=== PATIENT | female | born 1935 | race Caucasian/White ===

== ENCOUNTER 2017-04-02 13:30 | Inpatient (IN) | payer MEDICARE, BC ==
[~2017-04-02] VITALS: Ht 170.2 cm; Wt 87.3 kg
[2017-04-02] MEDS ORDERED: IV NORMAL SALINE 1,000ML 1,000 ML IV SCH (14:14)
[2017-04-02 14:25] LABS: BASO % 1 % (0-3); EOS % 1 % (0-3); HEMATOCRIT 32.7 % (36.0-47.0); LYMPH # 0.6 x10^3/uL (1.0-4.8); LYMPH % 11 % (24-48); MEAN CORPUSCULAR HEMOGLOBIN 36 pg (25-35); MEAN CORPUSCULAR HGB CONC 34 g/dL (31-37); MEAN CORPUSCULAR VOLUME 106 fL (79-100); MONO # 0.4 x10^3/uL (0.0-1.1); MONO % 7 % (0-9); NEUT # 4.6 x10^3uL (1.8-7.7); NEUT % 81 % (31-73); PLATELET COUNT 212 x10^3/uL (140-400); RED BLOOD COUNT 3.09 x10^6/uL (3.50-5.40); RED CELL DISTRIBUTION WIDTH 14.2 % (11.5-14.5); WHITE BLOOD COUNT 5.7 x10^3/uL (4.0-11.0)
[2017-04-02 14:30] LABS: ALBUMIN 3.6 g/dL (3.4-5.0); ALBUMIN/GLOBULIN RATIO 1.3 (1.0-1.7); CALCIUM 8.7 mg/dL (8.5-10.1); CREATININE 1.2 mg/dL (0.6-1.0); GFR 43.3; MAGNESIUM 2.1 mg/dL (1.8-2.4); POTASSIUM 3.8 mmol/L (3.5-5.1); TOTAL BILIRUBIN 0.5 mg/dL (0.2-1.0); TOTAL PROTEIN 6.3 g/dL (6.4-8.2)
--- NOTE | 2017-04-02 14:38 | RAD ---
EXAM: CHEST 1 VIEW History: Weakness, headache COMPARISON: None available. TECHNIQUE: Single portable radiograph of the chest FINDINGS: The cardiac silhouette is unremarkable. The lungs are clear bilaterally. The costophrenic sulci are clear and well demarcated. IMPRESSION: No radiographic evidence of an acute cardiopulmonary process.
--- NOTE | 2017-04-02 14:48 | PHYS DOC ---
Past History Past Medical History: Other Past Surgical History: Hysterectomy Alcohol Use: None Drug Use: None Adult General Chief Complaint Chief Complaint: DIZZY/LIGHT HEADED HPI HPI Patient is a 81 year old female who presents with complaint of dizziness. Patient states that she started having symptoms this morning. Patient states that when she attempted to get up and walk she started having "dizziness." The patient is having a difficult time explaining whether she is having a moving sensation versus lightheadedness. Patient does state that she felt like she was going to pass out with her symptoms. Patient states that they improve when she is at rest and is lying back. Patient denies any associated fever, chest pain, or associated unilateral weakness. Patient follows a Dr. Del Rosario for primary care. Patient has history of leukemia which is currently in remission. Patient states that she is on daily therapy for suppression and states that she follows at [facility] for her cancer care. Patient denies any abdominal pain , nausea, vomiting, or diarrhea. Patient does note that she has had decreased appetite over the past several days. Review of Systems Review of Systems Constitutional: Generalized fatigue, denies fever or chills[] Eyes: Denies change in visual acuity, redness, or eye pain [] HENT: Denies nasal congestion or sore throat [] Respiratory: Denies cough or shortness of breath [] Cardiovascular: Denies chest pain or edema[] GI: Anorexia, denies abdominal pain, nausea, vomiting, bloody stools or diarrhea [] : Denies dysuria or hematuria [] Musculoskeletal: Denies back pain or joint pain [] Integument: Denies rash or skin lesions [] Neurologic: Dizziness, denies headache, focal weakness or sensory changes [] Current Medications Current Medications Current Medications Medications (Trade) Dose Ordered Sig/[facility] Start Time Stop Time Status Last Admin Dose Admin Sodium Chloride 1,000 ml @ 1,000 mls/hr Q1H 04/02/17 14:14 04/02/17 15:13 UNV Physical Exam Physical Exam Constitutional: Alert, afebrile, appears fatigued. [] HENT: Normocephalic, atraumatic, bilateral external ears normal, oropharynx moist, no oral exudates, nose normal. [] Eyes: PERRLA, EOMI, conjunctiva normal, no discharge. [] Neck: Normal range of motion, no tenderness, supple, no stridor. [] Cardiovascular:Heart rate regular rhythm, no murmur [] Lungs & Thorax: Bilateral breath sounds clear to auscultation [] Abdomen: Bowel sounds normal, soft, no tenderness, no masses, no pulsatile masses. [] Skin: Warm, dry, no erythema, no rash. [] Back: No tenderness, no CVA tenderness. [] Extremities: No tenderness, no cyanosis, no clubbing, ROM intact, no edema. [] Neurologic: Alert and oriented X 3, normal motor function, normal sensory function, no focal deficits noted. [] Current Patient Data Vital Signs Vital Signs Date Time Temp Pulse Resp B/P (MAP) Pulse Ox O2 Delivery O2 Flow Rate FiO2 04/02/17 13:35 97.8 71 16 99 Room Air Lab Results Laboratory Tests Test 04/02/17 13:51 White Blood Count 5.7 x10^3/uL (4.0-11.0) Red Blood Count 3.09 x10^6/uL (3.50-5.40) L Hemoglobin 11.0 g/dL (12.0-15.5) L Hematocrit 32.7 % (36.0-47.0) L Mean Corpuscular Volume 106 fL (79-100) H Mean Corpuscular Hemoglobin 36 pg (25-35) H Mean Corpuscular Hemoglobin Concent 34 g/dL (31-37) Red Cell Distribution Width 14.2 % (11.5-14.5) Platelet Count 212 x10^3/uL (140-400) Neutrophils (%) (Auto) 81 % (31-73) H Lymphocytes (%) (Auto) 11 % (24-48) L Monocytes (%) (Auto) 7 % (0-9) Eosinophils (%) (Auto) 1 % (0-3) Basophils (%) (Auto) 1 % (0-3) Neutrophils # (Auto) 4.6 x10^3uL (1.8-7.7) Lymphocytes # (Auto) 0.6 x10^3/uL (1.0-4.8) L Monocytes # (Auto) 0.4 x10^3/uL (0.0-1.1) Eosinophils # (Auto) 0.0 x10^3/uL (0.0-0.7) Basophils # (Auto) 0.0 x10^3/uL (0.0-0.2) Sodium Level 144 mmol/L (136-145) Potassium Level 3.8 mmol/L (3.5-5.1) Chloride Level 109 mmol/L (98-107) H Carbon Dioxide Level 26 mmol/L (21-32) Anion Gap 9 (6-14) Blood Urea Nitrogen 18 mg/dL (7-20) Creatinine 1.2 mg/dL (0.6-1.0) H Estimated GFR (Cockcroft-Gault) 43.3 BUN/Creatinine Ratio 15 (6-20) Glucose Level 149 mg/dL (70-99) H Calcium Level 8.7 mg/dL (8.5-10.1) Magnesium Level 2.1 mg/dL (1.8-2.4) Total Bilirubin 0.5 mg/dL (0.2-1.0) Aspartate Amino Transferase (AST) 15 U/L (15-37) Alanine Aminotransferase (ALT) 16 U/L (14-59) Alkaline Phosphatase 69 U/L (46-116) Total Protein 6.3 g/dL (6.4-8.2) L Albumin 3.6 g/dL (3.4-5.0) Albumin/Globulin Ratio 1.3 (1.0-1.7) EKG EKG Interpreted by me: Heart rate 69, sinus rhythm, leftward axis, no acute ST/T- wave abnormalities present[] Radiology/Procedures Radiology/Procedures [address] [address] IMAGING REPORT Signed PATIENT: SUZANNE CR ACCOUNT: [id number] : 1935 LOCATION: ER AGE: 81 SEX: F EXAM STATUS: REG ER ORD. PHYSICIAN: CECILIO GARCIA MD REASON: near syncope PROCEDURE: PORTABLE CHEST 1V EXAM: CHEST 1 VIEW History: Weakness, headache COMPARISON: None available. TECHNIQUE: Single portable radiograph of the chest FINDINGS: The cardiac silhouette is unremarkable. The lungs are clear bilaterally. The costophrenic sulci are clear and well demarcated. IMPRESSION: No radiographic evidence of an acute cardiopulmonary process. DICTATED AND SIGNED BY: JOSIANE SPRAGUE MD DATE: 04/02/171433 CC: CECILIO GARCIA MD; MERRY DEL ROSARIO MD ~ [address] [address] IMAGING REPORT Signed PATIENT: SUZANNE CR ACCOUNT: [id number] : 1935 LOCATION: ER AGE: 81 SEX: F EXAM STATUS: REG ER ORD. PHYSICIAN: CECILIO GARCIA MD REASON: dizziness PROCEDURE: CT HEAD WO CONTRAST CT head without contrast History: Headache, dizziness. Comparison: None. Procedure: Axial images are obtained of the head from the skull base through the vertex without IV contrast. Findings: The ventricles and sulci are normal for the patient's age. No mass-effect, intracranial mass, midline shift, hemorrhage or obvious acute infarction is identified. Basilar cisterns are patent. Bone windows demonstrate no significant calvarial abnormality. The visualized paranasal sinuses appear clear. Impression: 1. No acute intracranial process. PQRS Compliance Statement: One or more of the following individualized dose reduction techniques were utilized for this examination: 1. Automated exposure control 2. Adjustment of the mA and/or kV according to patient size 3. Use of iterative reconstruction technique DICTATED AND SIGNED BY: JOSIANE SPRAGUE MD DATE: 04/02/171657 CC: CECILIO GARCIA MD; MERRY DEL ROSARIO MD ~ [] Course & Med Decision Making Course & Med Decision Making Pertinent Labs and Imaging studies reviewed. (See chart for details) Patient started on IV fluids and meclizine in the emergency department. On reevaluation, patient continues to have positional dizziness. Patient's initial workup shows no clear etiology of patient's symptoms at this time. The patient shows no other symptoms that would be consistent with posterior stroke at this time. Due to inability to ambulate independently, the patient will be admitted the hospital for further treatment. I spoke with Dr. Auguste accepted care patient in hospital. Dragon Disclaimer Dragon Disclaimer This chart was dictated in whole or in part using Voice Recognition software in a busy, high-work load, and often noisy Emergency Department environment. It may contain unintended and wholly unrecognized errors or omissions. Departure Departure: Impression: Primary Impression: Dizziness Disposition: 09 ADMITTED INPATIENT Admitting Physician: Carmita Auguste Condition: STABLE Referrals: MERRY DEL ROSARIO MD (PCP) CECILIO GARCIA MD Apr 02, 2017 14:47
[2017-04-02] MEDS ORDERED: MECLIZINE 12.5 MG TABLET. PO STA (15:42)
[2017-04-02 16:32] LABS: BILIRUBIN,URINE NEG (NEG); CLARITY,URINE HAZY; COLOR,URINE YELLOW; GLUCOSE,URINE NEG (NEG); NITRITE,URINE NEG (NEG); UROBILINOGEN,URINE 0.2 mg/dL (0.2 mg/dL)
[2017-04-02 16:33] LABS: BACTERIA,URINE 0 /HPF (0-FEW); RBC,URINE 20-40 /HPF (0-2); SQUAMOUS EPITHELIAL CELL,UR MOD /LPF; WBC,URINE OCC /HPF (0-4)
--- NOTE | 2017-04-02 17:03 | RAD ---
CT head without contrast History: Headache, dizziness. Comparison: None. Procedure: Axial images are obtained of the head from the skull base through the vertex without IV contrast. Findings: The ventricles and sulci are normal for the patient's age. No mass-effect, intracranial mass, midline shift, hemorrhage or obvious acute infarction is identified. Basilar cisterns are patent. Bone windows demonstrate no significant calvarial abnormality. The visualized paranasal sinuses appear clear. Impression: 1. No acute intracranial process. PQRS Compliance Statement: One or more of the following individualized dose reduction techniques were utilized for this examination: 1. Automated exposure control 2. Adjustment of the mA and/or kV according to patient size 3. Use of iterative reconstruction technique
[2017-04-02] MEDS ORDERED: ACETAMINOPHEN 325 MG TABLET PO PRN (17:30)
[2017-04-02] MEDS ORDERED: ONDANSETRON PF 4 MG/2 ML VIAL. IV PRN (17:30)
[2017-04-02] MEDS ORDERED: MECLIZINE 12.5 MG TABLET. PO PRN (17:30)
[2017-04-02 18:12] VITALS: BP 155/89
[2017-04-02] MEDS ORDERED: ESOM40CA PO (19:08)
[2017-04-02] MEDS ORDERED: IMAT100T PO (19:08)
--- NOTE | 2017-04-02 19:17 | EKG ---
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
[2017-04-02] MEDS: IV NORMAL SALINE 1,000ML 1,000 ML IV SCH (19:18)
[2017-04-02] MEDS ORDERED: POTA20TA4 PO (21:42)
[2017-04-02] MEDS ORDERED: PROP60CA PO (21:42)
[2017-04-02 22:28] VITALS: BP 140/66
[2017-04-03] MEDS: IV NORMAL SALINE 1,000ML 1,000 ML IV SCH ×2 (03:20→07:41)
[2017-04-03 05:02] VITALS: BP 141/62
[2017-04-03 06:24] LABS: CALCIUM 8.3 mg/dL (8.5-10.1); CREATININE 1.1 mg/dL (0.6-1.0); GFR 47.9; POTASSIUM 3.2 mmol/L (3.5-5.1)
[2017-04-03 06:25] LABS: BASO % 1 % (0-3); EOS # 0.1 x10^3/uL (0.0-0.7); EOS % 1 % (0-3); HEMATOCRIT 30.1 % (36.0-47.0); HEMOGLOBIN 10.2 g/dL (12.0-15.5); LYMPH # 1.4 x10^3/uL (1.0-4.8); LYMPH % 24 % (24-48); MEAN CORPUSCULAR HEMOGLOBIN 36 pg (25-35); MEAN CORPUSCULAR HGB CONC 34 g/dL (31-37); MEAN CORPUSCULAR VOLUME 106 fL (79-100); MONO # 0.7 x10^3/uL (0.0-1.1); MONO % 11 % (0-9); NEUT # 3.9 x10^3uL (1.8-7.7); NEUT % 64 % (31-73); PLATELET COUNT 197 x10^3/uL (140-400); RED BLOOD COUNT 2.85 x10^6/uL (3.50-5.40); RED CELL DISTRIBUTION WIDTH 14.1 % (11.5-14.5); WHITE BLOOD COUNT 6.1 x10^3/uL (4.0-11.0)
[2017-04-03] MEDS: PANTOPRAZOLE 40 MG TABLET. PO SCH (07:40)
[2017-04-03] MEDS: POTASSIUM CHLORIDE 20 MEQ TABLET.ER. PO SCH (09:12)
[2017-04-03] MEDS: PROPRANOLOL ER 60 MG CAP.SA.24H. PO SCH (09:12)
[2017-04-03 10:30] VITALS: BP 156/81
[2017-04-03] MEDS: IMATINIB MESYLATE 100 MG PO SCH (10:40)
[2017-04-03 15:08] VITALS: BP 114/78
--- NOTE | 2017-04-03 16:34 | RAD ---
EXAM: Carotid Doppler sonogram. HISTORY: Dizziness, weakness. TECHNIQUE: Solares scale and color Doppler sonographic evaluation of the neck with spectral waveform analysis was performed and static images are submitted for review. FINDINGS: RIGHT: The peak systolic velocity within the common carotid artery is 42 cm/sec. The peak systolic velocity within the internal carotid artery is 36 cm/sec and the end diastolic velocity within the internal carotid artery is 16 cm/sec. The ICA/CCA ratio is 1.2. Grayscale images demonstrate no significant plaquing. LEFT: The peak systolic velocity within the common carotid artery is 32 cm/sec. The peak systolic velocity within the internal carotid artery is 47 cm/sec and the end diastolic velocity within the internal carotid artery is 70 cm/sec. The ICA/CCA ratio is 1.5. Grayscale images demonstrate no significant plaquing. There is antegrade flow within both vertebral arteries. IMPRESSION: 1. No evidence of hemodynamically significant stenosis. PQRS Compliance Statement - Stenosis calculations for CT, MR and conventional angiography are based upon measurement of the distal ICA diameter in accordance with the NASCET methodology. Stenosis calculations for carotid ultrasound studies are derived from validated velocity criteria which are known to correlate with the NASCET methodology.
[2017-04-03] MEDS ORDERED: POTASSIUM CHLORIDE 20 MEQ TABLET.ER. PO ONE (16:45)
--- NOTE | 2017-04-03 17:14 | RAD ---
CT study of the lumbar spine without contrast Indications: Weakness. Low back pain. Technique: Noncontrast helical CT scanning of the lumbar spine was performed. Multiplanar 2-D reconstructions were generated. PQRS Compliance Statement: One or more of the following individualized dose reduction techniques were utilized for this examination: 1. Automated exposure control 2. Adjustment of the mA and/or kV according to patient size 3. Use of iterative reconstruction technique Comparison: CT study of the abdomen and pelvis dated July 07, 2014. Findings: No compression fracture or discitis or osteolytic process or anterolisthesis or spondylolysis is evident. The transverse processes are intact. At T12-L1, mild spinal canal stenosis is seen. L1-2, mild spinal canal stenosis is seen. At L2-3, mild diffuse disc protrusion is seen. Mild spinal canal stenosis is seen. At L3-4, mild diffuse disc protrusion is seen. Mild to moderate spinal canal stenosis is seen. At L4-5, mild diffuse disc protrusion is seen. Degenerative facet arthropathy and ligamentum flavum hypertrophy is seen. These findings combine to form a moderate spinal canal stenosis. There is mild narrowing of the neural foramina bilaterally. At L5-S1, prominent degenerative endplate spurring and associated moderate diffuse disc protrusion is seen. Moderate facet arthropathy and ligamentum flavum hypertrophy is seen. These findings combine to form a moderate spinal canal stenosis. There is moderate narrowing of the neural foramina bilaterally. Mild retrolisthesis is seen at this level as well. IMPRESSION: No acute compression fracture. Degenerative lumbar spondylosis. Multilevel spinal canal stenosis and neural foraminal narrowing as discussed above. See discussion above for each level. Incidental note is made of moderate hiatal hernia and staghorn calculus of the left kidney and central renal pelvis stone of the right kidney.
--- NOTE | 2017-04-03 18:20 | HP ---
ADMIT DATE: 04/02/2017 HISTORY OF PRESENT ILLNESS: The patient is a 81-year-old female patient who came to the Emergency Room complaining of dizziness. She started having symptoms this morning. Whenever she attempts to get up and walk, she started having dizziness. The patient is having a difficult time explaining whether she is having moving sensation versus lightheadedness. She did state that she felt like she was going to pass out with her symptoms. She did not describe anything spinning around. Denied any tinnitus. Did complain of nausea, but no vomiting. She stated that her feet become wobbly and she feels as if she is going to fall, but she uses the furniture and with the help of her , she manages to get to where she wants to get. She did complain that whenever she turns her head in certain position that her symptoms get worse. She has never experienced similar symptoms before. 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 She is on Gleevec daily. She has also Licea's esophagus, hyperlipidemia, and seasonal allergies. PAST SURGICAL HISTORY: Significant for bilateral cataract extraction, total abdominal hysterectomy and bilateral salpingo-oophorectomy, appendectomy, EGD, and colonoscopy. ALLERGIES: She is allergic to AMPICILLIN and CRESTOR. MEDICATIONS: She is currently on Nexium capsule 40 mg once a day, Gleevec 200 mg once a day, potassium chloride 20 mEq once a day, propranolol 60 mg daily. FAMILY HISTORY: She has had 1 brother who of Parkinson's disease at the age of 76. Her baby brother at 7 months of age. Her father of bladder cancer and mother of congestive heart failure. SOCIAL HISTORY: She is and lives with her . She has 2 daughters. Never smoked, does not drink alcohol and not using any drugs. 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 REVIEW OF SYSTEMS: The patient denied any blurring of vision. Did have cataracts and she has the beginning of senile macular degeneration. Denied any glaucoma. She denied any tinnitus, earache, or sensorineural deafness. Did complain of stuffy nose and seasonal allergies. Denied any sore throat, sore tongue, toothache, hoarseness of voice, or difficulty swallowing. She did intentionally lose about 28 pounds. Did complain of nausea, but no vomiting. Denied any hematemesis, melena, or hematochezia. Denied any dysuria, frequency, or hematuria. Denied any chest pain, shortness of breath, orthopnea, or paroxysmal nocturnal dyspnea. Denied any cough, phlegm, or hemoptysis, but did complain of dizziness and lightheadedness. PHYSICAL EXAMINATION: GENERAL: On arrival to the Emergency Room, she looks well and was clearly in no apparent respiratory distress, slightly pale, but no jaundice, cyanosis, or thyromegaly. No jugular venous distention. No limb edema. VITAL SIGNS: Her heart rate was 71, blood pressure was 155/89, temperature was 97.6, respiratory rate was 16 and oxygen saturation was 99% on room air. HEAD, EYES, EARS, NOSE AND THROAT: Normocephalic, atraumatic. NECK: Supple. HEART: Showed normal first and second heart sounds with no gallop, rub, or murmur. CHEST: Clear to auscultation. No crepitation or rhonchi. ABDOMEN: Distended, soft, nontender. No guarding or rigidity. No organomegaly. All hernial orifices intact. Bowel sounds normal. NEUROLOGIC: She was awake, alert, responding appropriately. Cranial nerves intact. EXTREMITIES: She moves extremities without difficulty. She normally is able to ambulate without assistance or assistive devices, but has been unable to ambulate and whenever she stands or turned her head, she had this feeling of dizziness. LABORATORY DATA: While in the Emergency Room, she has had lab work done, which showed a white cell count of 5700, hemoglobin 11, hematocrit 33, MCV 106, platelet count of 212,000. Her chemistry showed serum sodium of 144, potassium 3.8, chloride 109, bicarbonate was 26, anion gap of 9, BUN 18, creatinine 1.2, estimated GFR was 43 mL per minute. Her glucose was 149, calcium was 8.7, magnesium 2.1. Total bilirubin, AST, ALT, alkaline phosphatase were normal. Total protein was 6.3, albumin 3.6. Urinalysis showed the urine was yellow, hazy with a pH of 7, specific gravity of 10.15. Urine was negative for glucose, ketones, blood, nitrites. There was moderate amount of blood, negative for nitrite and negative for leukocyte esterase. There were 20-40 rbc's, no bacteria. We did arrange for her to have a CT scan. Her chest x-ray showed no radiographic evidence of acute cardiopulmonary process. Her CT scan of the head showed the ventricles and sulci are normal for the patient's age. No mass effect, intracranial mass, midline shift, hemorrhage, or obvious acute infarction is identified. Basilar cisterns are patent. Bone windows demonstrate no significant calvarial abnormality. The visualized paranasal sinuses appear clear. We did arrange for her to have a lumbar spine CT and carotid Doppler study. We did consult the neurologist as she probably had some form of acute labyrinthitis versus positional paroxysmal benign vertigo. I will continue all her medication and consult the PT, OT. Await Dr. Reyna's evaluation tomorrow and decide on further management accordingly. KRISTEN YUN MD DR: MIGUEL/torsten JOB#: [id number] / [id number]
[2017-04-03 19:43] VITALS: BP 101/53
--- NOTE | 2017-04-03 23:41 | CONS ---
DATE OF CONSULTATION: 04/03/2017 NEUROLOGICAL CONSULTATION REFERRING PHYSICIAN: Carmita Auguste DO. CHIEF COMPLAINTS: Dizziness, lower back pain and generalized weakness. HISTORY OF PRESENT ILLNESS: This is a 81-year-old female who was admitted to Emergency Room yesterday on account of a new onset of dizziness described as "lightheadedness." The symptoms started 2 days ago and more apparent when she changes her body positions or turning her head quickly to any directions. She described her dizziness as "lightheadedness" and unsteadiness. She has had longstanding history of localized lower back pain and she related that to degenerative disk disease. She has been complaining of generalized weakness, more prominent on the lower extremities. She has been receiving physical therapy at [facility] here in town. She denies bowel or bladder dysfunctions. She also complains of intermittent stiffness of the lower extremities and mild tremor of the right hand, more prominent when she uses her right hand or holding objects. She denies any recent falls, headaches, visual disturbances, numbness or paresthesia, bowel or bladder dysfunctions. Initial non-enhanced head CT scan revealed no evidence of acute intracranial process. PAST MEDICAL HISTORY: Leukemia, which it is in remission, chronic lower back pain as described above. SOCIAL HISTORY: The patient is . She denies smoking, alcohol drinking, or illicit drug use. She uses a walker for ambulation. FAMILY HISTORY: Positive for cancer, Parkinson's disease and congestive heart failure. CURRENT HOME MEDICATIONS: Tylenol, pantoprazole, potassium and propranolol. ALLERGIES: AMPICILLIN AND ROSUVASTATIN. REVIEW OF SYSTEMS: A 10-point review of system was performed and consistent with generalized weakness, chronic lower back pain and dizziness. PHYSICAL EXAMINATION: GENERAL: Well-developed, well-nourished, white female, not in acute distress. She weighs 187.3 pounds. VITAL SIGNS: Blood pressure is 141/62, respiratory rate 20, pulse is 60 and regular, temperature 98.4, oxygen saturation is 96% on room air. HEENT: Normocephalic, atraumatic, otherwise unremarkable. NECK: Supple. Negative for carotid bruit, lymphadenopathy or thyromegaly. LUNGS: Clear to A and P. CARDIOVASCULAR: Regular rate and rhythm, normal S1, S2. There is no S3, S4 or murmur. ABDOMEN: Soft. Bowel sounds positive. EXTREMITIES: Negative for cyanosis, clubbing or pitting edema. NEUROLOGIC: Mental Status: The patient is alert and oriented x 3. Speech is fluent. There is no language dysfunction. Memory, judgment, and abstract thinking are normal. The patient denies hallucination or delusion. CRANIAL NERVES: Visual mascorro are full. The pupils are reactive to light and accommodation. Extraocular movements are intact. There is no nystagmus. There is no facial motor or sensory deficit. Hearing is intact bilaterally. The palate is elevated symmetrically. Sternocleidomastoid muscles are powerful bilaterally. The patient shrugs her shoulders symmetrically, protrudes her tongue in the midline without fasciculation or atrophy. MOTOR: No focal muscle bulk was seen. The tone is normal. The strength is 5/5 in the upper extremities and 4/5 in the distal lower extremity and -4/5 in the proximal lower extremities. Sensory: Revealed normal pinprick, light touch, vibratory and position senses. Deep tendon reflexes were symmetric and hypoactive with absent Achilles responses. Gait not tested. DIAGNOSTIC DATA: Initial nonenhanced head CT scan revealed no evidence of acute intracranial process. Chest x-ray revealed no evidence of acute cardiopulmonary process. LABORATORY DATA: CBC revealed white blood cells of 6.1 thousand, hemoglobin 10.2, hematocrit 30.1, platelet count 197,000. Chemistry revealed sodium of 147, potassium 3.2, chloride 112, CO2 of 27, BUN 13, creatinine 1.1, glucose is 80 and calcium 8.3. Urinalysis,. microscopic hematuria. IMPRESSION: 1. New onset of dizziness aggravated by turning the head quickly to any directions or by changing her body positions likely represents benign positional vertigo versus vestibulopathy. 2. Chronic localized lower back pain, likely secondary to degenerative disk disease causing weakness of the lower extremities, more proximally. 3. Intermittent mild postural tremor, probably represents a senile tremor. 4. Multiple metabolic derangements including hypokalemia, hypocalcemia, hypernatremia, probably secondary to dehydration. 5. Leukemia in remission. RECOMMENDATIONS: 1. Carotid Doppler study. 2. CT scan of the lumbosacral spine. 3. Vestibular exercise and physical therapy. 4. Hydration. 5. Correct the underlying metabolic derangement with potassium and calcium supplements and careful hydrations. 4. Increase the activity as tolerated. 5. In case of radicular lower back pain, we will arrange for EMG/NCS of the lower extremity to rule out radiculopathy versus entrapment neuropathy in the lower extremity. M Misael DRAKE MD DR: HEIKE/torsten JOB#: [id number] / [id number]
[2017-04-03 23:48] VITALS: BP 130/59
[2017-04-04 05:58] VITALS: BP 122/51
[2017-04-04 07:04] LABS: HEMATOCRIT 29.1 % (36.0-47.0); RED BLOOD COUNT 2.74 x10^6/uL (3.50-5.40); RED CELL DISTRIBUTION WIDTH 14.8 % (11.5-14.5); WHITE BLOOD COUNT 5.8 x10^3/uL (4.0-11.0)
[2017-04-04 07:33] LABS: ALBUMIN 2.8 g/dL (3.4-5.0); ALBUMIN/GLOBULIN RATIO 1.1 (1.0-1.7); CALCIUM 7.8 mg/dL (8.5-10.1); CREATININE 1.2 mg/dL (0.6-1.0); GFR 43.3; TOTAL BILIRUBIN 0.4 mg/dL (0.2-1.0); TOTAL PROTEIN 5.3 g/dL (6.4-8.2)
[2017-04-04] MEDS: POTASSIUM CHLORIDE 20 MEQ TABLET.ER. PO SCH (10:04)
[2017-04-04] MEDS: PANTOPRAZOLE 40 MG TABLET. PO SCH (10:04)
[2017-04-04] MEDS: IMATINIB MESYLATE 100 MG PO SCH (10:04)
[2017-04-04 10:10] VITALS: BP 122/63
[2017-04-04] MEDS: PROPRANOLOL ER 60 MG CAP.SA.24H. PO SCH (10:10)
[2017-04-04 10:54] VITALS: BP 149/72
[2017-04-04 15:21] VITALS: BP 148/77
[2017-04-04] MEDS ORDERED: DOCUSATE SODIUM 100 MG CAPSULE PO PRN (17:30)
--- NOTE | 2017-04-05 01:05 | PN ---
DATE: 04/04/2017 SUBJECTIVE: The patient continues to have mild dizziness described as spinning mainly when she turns to the right side. She denies nausea, vomiting. She continues to have localized lower back pain, aggravated by prolonged standing or walking. She denies any new medical or neurological complaints. OBJECTIVE: GENERAL: Well-developed, well-nourished white female, not in acute distress. VITAL SIGNS: Blood pressure 122/51, respiratory rate 16, pulse is 58 and regular, temperature 97.7, oxygen saturation is 97% on room air. HEENT: Normocephalic, atraumatic, otherwise unremarkable. NECK: Supple. Negative for carotid bruit, lymphadenopathy or thyromegaly. LUNGS: Clear to A and P. CARDIOVASCULAR: Regular rate and rhythm, normal S1, S2. There is no S3, S4 or murmur. ABDOMEN: Soft. Bowel sounds positive. EXTREMITIES: Negative for cyanosis, clubbing or pitting edema. NEUROLOGIC: Normal mental status and intact cranial nerves. No focal, motor or sensory deficit. The strength is 4/5 in the proximal lower extremities. Sensory: Examination revealed normal pinprick, light touch, vibratory and position senses. Deep tendon reflexes are symmetric and hypoactive with absent Achilles responses. Gait: The patient uses a walker for ambulation. She has a steady stance. DIAGNOSTIC DATA: Carotid Doppler study revealed no evidence of significant stenosis and lumbosacral spine revealed evidence of degenerative disk disease at multiple levels, more prominent at L5-S1. LABORATORY DATA: CBC revealed white blood cells of 5,800, hemoglobin 10, hematocrit 29, platelet count 170,000. Chemistry revealed sodium of 146, potassium 4, chloride 115, BUN 16, creatinine 1.2, calcium 7.8. IMPRESSION: 1. 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 2. Chronic lower back pain. 3. Intermittent mild senile tremor. 4. Hypokalemia. 5. Anemia. RECOMMENDATIONS: 1. Continue with current management initiated by Dr. Hilton. 2. Continue with physical therapy and vestibular exercises. 3. Correct the underlying metabolic derangement as hypokalemia. 4. Treat the underlying anemia. M Misael DRAKE MD DR: HEIKE/torsten JOB#: [id number] / [id number]
[2017-04-05] MEDS ORDERED: MECL12.52 PO (03:30)
[2017-04-05] MEDS ORDERED: PANT40TA3 PO (03:30)
[2017-04-07 06:22] LABS: HEMATOCRIT 29.8 % (36.0-47.0); HEMOGLOBIN 10.4 g/dL (12.0-15.5); RED BLOOD COUNT 2.84 x10^6/uL (3.50-5.40); RED CELL DISTRIBUTION WIDTH 14.3 % (11.5-14.5); WHITE BLOOD COUNT 6.2 x10^3/uL (4.0-11.0)
[2017-04-07 06:37] LABS: ALBUMIN 2.9 g/dL (3.4-5.0); ALBUMIN/GLOBULIN RATIO 1.1 (1.0-1.7); CALCIUM 8.4 mg/dL (8.5-10.1); CREATININE 1.2 mg/dL (0.6-1.0); GFR 43.3; POTASSIUM 3.8 mmol/L (3.5-5.1); TOTAL BILIRUBIN 0.4 mg/dL (0.2-1.0); TOTAL PROTEIN 5.5 g/dL (6.4-8.2)
== END 2017-04-05 03:16 | disposition swing bed (61) | DRG 149 ==
LOC: ER 13:30 → 1 SOUTH 17:36
PROVIDERS: ADMIT Family Medicine; ATTEND Family Medicine
DX: H81.20 Vestibular neuronitis, unspecified ear (principal); E87.0 Hyperosmolality and hypernatremia; E86.0 Dehydration; D64.9 Anemia, unspecified; E83.51 Hypocalcemia; C92.11 Chronic myeloid leukemia, BCR/ABL-positive, in remission; E78.5 Hyperlipidemia, unspecified; H81.10 Benign paroxysmal vertigo, unspecified ear; E87.6 Hypokalemia; G89.29 Other chronic pain; J30.2 Other seasonal allergic rhinitis; M54.5 Low back pain; R54 Age-related physical debility; K22.70 Barrett's esophagus without dysplasia; Z80.52 Family history of malignant neoplasm of bladder; Z82.0 Family history of epilepsy and other diseases of the nervous system; Z82.49 Family history of ischemic heart disease and other diseases of the circulatory system; Z90.710 Acquired absence of both cervix and uterus; Z98.41 Cataract extraction status, right eye; Z98.42 Cataract extraction status, left eye; Z90.722 Acquired absence of ovaries, bilateral; Z90.49 Acquired absence of other specified parts of digestive tract; Z88.8 Allergy status to other drugs, medicaments and biological substances
CPT/HCPCS: 36415; 70450; 71010; 72131; 80048; 80053; 81001; 82607; 82746; 83735; 84443; 85025; 85027; 93005; 93880; 96360; J2405; J8597; 97110; 97116; 97535; 99285-25; J7030

== ENCOUNTER 2017-04-05 03:22 | Inpatient (IN) | payer MEDICARE, BC ==
[~2017-04-05] VITALS: Ht 170.2 cm; Wt 83.7 kg
[~2017-04-05 03:22] MED LIST: ESOM40CA PO; IMAT100T PO; POTA20TA4 PO; PROP60CA PO
[2017-04-05] MEDS ORDERED: MECL12.52 PO (03:30)
[2017-04-05] MEDS ORDERED: PANT40TA3 PO (03:30)
[2017-04-05 07:21] VITALS: BP 137/69
[2017-04-05] MEDS: POTASSIUM CHLORIDE 20 MEQ TABLET.ER. PO SCH (08:29)
[2017-04-05] MEDS: PROPRANOLOL ER 60 MG CAP.SA.24H. PO SCH (08:29)
[2017-04-05] MEDS: PANTOPRAZOLE 40 MG TABLET. PO SCH (08:30)
[2017-04-05] MEDS: IMATINIB PO SCH ×2 (09:00→11:07)
[2017-04-05] MEDS: DOCUSATE SODIUM 100 MG CAPSULE PO PRN (11:02)
[2017-04-05 20:00] VITALS: BP 161/71
[2017-04-06 08:51] VITALS: BP 118/79
[2017-04-06] MEDS: PROPRANOLOL ER 60 MG CAP.SA.24H. PO SCH (09:03)
[2017-04-06] MEDS: PANTOPRAZOLE 40 MG TABLET. PO SCH (09:03)
[2017-04-06] MEDS: IMATINIB PO SCH (09:05)
[2017-04-06] MEDS: POTASSIUM CHLORIDE 20 MEQ TABLET.ER. PO SCH (09:07)
[2017-04-06] MEDS: POLYETHYLENE GLYCOL 3350 17 GM PACKET. PO PRN (12:26)
--- NOTE | 2017-04-06 19:44 | HP ---
ADMIT DATE: 04/05/2017 HISTORY OF PRESENT ILLNESS: The patient is a 81-year-old female patient who was admitted to the acute care in [address] [place] [address] on 04/03/2017. She came to the Emergency Room complaining of dizziness. She stated started having these symptoms on the morning of admission. Whenever she attempts to get up and walks, she started having dizziness. The patient is having difficult time explaining whether she is having moving sensation versus lightheadedness. She did state that she feels like she was going to pass out with her symptoms. She did not describe any spinning around, denied any tinnitus. Did complain of nausea, but no vomiting. She stated that her feet become wobbly and she feels as if she is going to fall, but she uses the furniture and with the help of her manage to get where she wants to get. She was basically extensively investigated and has had a CT scan of the head, x-ray of the lumbar spine, carotid Dopplers, all were negative. She was seen in consultation by Dr. Reyna, the neurologist and basically his impression is the patient has vestibulopathy versus paroxysmal benign positional vertigo, and as the patient was weak and requires assistance, a decision was made to admit her to Swing Bed for further rehabilitation. 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 She is on Gleevec daily. She also has Licea's esophagus, hyperlipidemia, and seasonal allergies. PAST SURGICAL HISTORY: Significant for bilateral cataract extraction, total abdominal hysterectomy and bilateral salpingo-oophorectomy, appendectomy, esophagogastroduodenoscopy, and colonoscopy. ALLERGIES: She is allergic to AMPICILLIN and CRESTOR. FAMILY HISTORY: She has one brother who of Parkinson's disease at the age of 76. Her baby brother at 7 months of age. Her father of bladder cancer and mother of congestive heart failure. SOCIAL HISTORY: She is and lives with her . She has 2 daughters. She never smoked, does not drink alcohol or used any drugs. 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 MEDICATIONS: She is currently on following medications: She is on Nexium 40 mg once a day, Gleevec 200 mg daily, meclizine 12.5 mg every 6 hours, Protonix 40 mg daily, potassium chloride 20 mEq daily, and propranolol 60 mg daily. PHYSICAL EXAMINATION: GENERAL: On examining her today, she looked well and was clearly in no apparent respiratory distress, slightly pale, but not jaundice, cyanosis, lymphadenopathy, or thyromegaly. No jugular venous distention. No lymphedema. VITAL SIGNS: Her heart rate was 65, blood pressure was 118/79, temperature was 97.5, respiratory rate 20, and oxygen saturation was 98% on room air. HEAD, EYES, EARS, NOSE AND THROAT: Normocephalic, atraumatic. NECK: Supple. HEART: Showed normal first and second heart sounds with no gallop, rub, or murmur. CHEST: Clear to auscultation. No crepitation or rhonchi. ABDOMEN: Distended, soft, nontender. No guarding or rigidity. No organomegaly. Hernial orifices intact. Bowel sounds normal. NEUROLOGIC: She was awake, alert, responding appropriately. Cranial nerves intact. She moves extremities without difficulty. She ambulates with a walker with standby assist. LABORATORY DATA: Her most recent lab work showed white cell count of 5800, hemoglobin 10, hematocrit 30, MCV 106, and platelet count of 170,000. Her most recent chemistry showed a serum sodium of 146, potassium of 4, chloride 113, bicarbonate 27, anion gap of 6, BUN 16, creatinine 1.2, estimated GFR was 43 mL per minute. Her glucose was 80, calcium was 7.8. Total bilirubin, AST, ALT, alkaline phosphatase were normal. Total protein was 5.3, albumin 2.8. Her TSH was normal. IMPRESSION: In summary, this is a 81-year-old female patient who was admitted to the Swing Bed as she continued to have generalized weakness and debility. She also has dizziness that is consistent with probably benign paroxysmal positional vertigo versus vestibulopathy. Her other medical problems include chronic myeloid leukemia in remission, Licea's esophagus, and she also is known to have hyperlipidemia, seasonal allergies. PLAN: My plan is to obviously continue with physical and occupational therapy. I will repeat her lab works to make sure that they are stable. Continue with all her current medications. KRISTEN YUN MD DR: MIGUEL/torsten JOB#: [id number] / [id number]
[2017-04-06 21:00] VITALS: BP 119/77
[2017-04-07 08:29] VITALS: BP 106/71
[2017-04-07] MEDS: IMATINIB PO SCH (09:26)
[2017-04-07] MEDS: PROPRANOLOL ER 60 MG CAP.SA.24H. PO SCH (09:27)
[2017-04-07] MEDS: PANTOPRAZOLE 40 MG TABLET. PO SCH (09:27)
[2017-04-07] MEDS: POTASSIUM CHLORIDE 20 MEQ TABLET.ER. PO SCH (09:27)
[2017-04-07 20:43] VITALS: BP 122/75
[2017-04-08 05:39] VITALS: BP 122/61
[2017-04-08] MEDS: POTASSIUM CHLORIDE 20 MEQ TABLET.ER. PO SCH (10:09)
[2017-04-08] MEDS: PROPRANOLOL ER 60 MG CAP.SA.24H. PO SCH (10:09)
[2017-04-08] MEDS: PANTOPRAZOLE 40 MG TABLET. PO SCH (10:09)
[2017-04-08] MEDS: IMATINIB PO SCH (10:10)
[2017-04-08 18:06] VITALS: BP 113/53
[2017-04-09 05:15] VITALS: BP 133/63
[2017-04-09] MEDS: POLYETHYLENE GLYCOL 3350 17 GM PACKET. PO PRN (09:21)
[2017-04-09] MEDS: POTASSIUM CHLORIDE 20 MEQ TABLET.ER. PO SCH (09:22)
[2017-04-09] MEDS: PROPRANOLOL ER 60 MG CAP.SA.24H. PO SCH (09:22)
[2017-04-09] MEDS: IMATINIB PO SCH (09:22)
[2017-04-09] MEDS: PANTOPRAZOLE 40 MG TABLET. PO SCH (09:22)
[2017-04-09 17:34] VITALS: BP 125/60
[2017-04-10 06:36] VITALS: BP 149/78
[2017-04-10] MEDS: PROPRANOLOL ER 60 MG CAP.SA.24H. PO SCH (08:08)
[2017-04-10] MEDS: PANTOPRAZOLE 40 MG TABLET. PO SCH (08:08)
[2017-04-10] MEDS: POTASSIUM CHLORIDE 20 MEQ TABLET.ER. PO SCH (08:08)
[2017-04-10] MEDS: DOCUSATE SODIUM 100 MG CAPSULE PO PRN (08:08)
[2017-04-10] MEDS: POLYETHYLENE GLYCOL 3350 17 GM PACKET. PO PRN (08:08)
[2017-04-10] MEDS: IMATINIB PO SCH (08:09)
[2017-04-10 18:22] VITALS: BP 123/71
[2017-04-11 05:11] VITALS: BP 128/76
[2017-04-11] MEDS: IMATINIB PO SCH (08:51)
[2017-04-11] MEDS: POTASSIUM CHLORIDE 20 MEQ TABLET.ER. PO SCH (08:52)
[2017-04-11] MEDS: PANTOPRAZOLE 40 MG TABLET. PO SCH (08:53)
[2017-04-11] MEDS: POLYETHYLENE GLYCOL 3350 17 GM PACKET. PO PRN (08:54)
[2017-04-11] MEDS: PROPRANOLOL ER 60 MG CAP.SA.24H. PO SCH (08:54)
[2017-04-11 18:59] VITALS: BP 104/55
[2017-04-12 05:40] VITALS: BP 131/69
[2017-04-12] MEDS: PROPRANOLOL ER 60 MG CAP.SA.24H. PO SCH (08:47)
[2017-04-12] MEDS: POTASSIUM CHLORIDE 20 MEQ TABLET.ER. PO SCH (08:49)
[2017-04-12] MEDS: PANTOPRAZOLE 40 MG TABLET. PO SCH (08:49)
[2017-04-12] MEDS: IMATINIB PO SCH (08:50)
--- NOTE | 2017-04-12 09:18 | PN ---
DATE: 04/11/2017 WORKING DIAGNOSES: 1. Generalized weakness. 2. Debility. 3. Chronic myeloid leukemia. 4. Licea's esophagus. 5. Hyperlipidemia. 6. Allergies. SUBJECTIVE: The patient is doing well with her rehab. She continues to do PT and OT. She is sitting up eating. She does have some allergies in the morning, but does not take any medication and does not desire any medication for the stuffy nose. She does use Flonase, however. OBJECTIVE: VITAL SIGNS: Blood pressure 128/76, pulse 64, temperature 97.7, respiratory rate 16, pulse ox 96% on room air. HEENT: Nose, a little congested. Throat was clear. NECK: Supple. LUNGS: Clear. CARDIOVASCULAR: Regular rhythm and rate with a 2/6 systolic murmur. EXTREMITIES: Without edema. PLAN: Continue rehab. SVETLANA PAYAN DO DR: LARISA/torsten JOB#: [id number] / [id number]
[2017-04-12 19:08] VITALS: BP 123/55
[2017-04-12 19:11] VITALS: BP 115/55
[2017-04-13 05:57] VITALS: BP 139/76
[2017-04-13 06:03] VITALS: BP 161/74
[2017-04-13] MEDS: PROPRANOLOL ER 60 MG CAP.SA.24H. PO SCH (08:28)
[2017-04-13] MEDS: POTASSIUM CHLORIDE 20 MEQ TABLET.ER. PO SCH (08:28)
[2017-04-13] MEDS: PANTOPRAZOLE 40 MG TABLET. PO SCH (08:29)
[2017-04-13] MEDS: IMATINIB PO SCH (08:29)
[2017-04-13 18:20] VITALS: BP 111/57
[2017-04-14 06:16] VITALS: BP 121/77
[2017-04-14] MEDS: PANTOPRAZOLE 40 MG TABLET. PO SCH (06:25)
[2017-04-14] MEDS: IMATINIB PO SCH (08:31)
[2017-04-14 08:33] VITALS: BP 121/77
[2017-04-14] MEDS: PROPRANOLOL ER 60 MG CAP.SA.24H. PO SCH (08:33)
[2017-04-14] MEDS: POTASSIUM CHLORIDE 20 MEQ TABLET.ER. PO SCH (08:35)
--- NOTE | 2017-04-14 10:50 | PDOC3 ---
Discharge Summary Visit Information Date of Admission: Apr 05, 2017 Date of Discharge: Apr 14, 2017 Final Diagnosis 1. WEAKNESS 2. DEBILITY 3. CML IN REMISSION 4. MACROCYTIC ANEMIA 5. HYPERLIPIDEMIA 6. CONSTIPATION-RESOLVED 7. WARNER'S ESOPHAGUS Problems: Brief Hospital Course Allergies Allergies Coded Allergies Type Severity Reaction Last Updated Verified ampicillin Allergy Intermediate 04/02/17 Yes rosuvastatin Allergy Intermediate 04/02/17 Yes Vital Signs Vital Signs Date Time Temp Pulse Resp B/P (MAP) Pulse Ox O2 Delivery O2 Flow Rate FiO2 04/14/17 08:33 62 121/77 04/14/17 06:16 97.5 18 96 Room Air Brief Hospital Course Ms. Miranda is a 81 old FEMALE WHO WAS ADMITTED TO SWING BED AFTER A STAY ON FOR VERTIGO. SHE HAD PT AND OT AND IMPROVED HE STRENGTH ON A DAILY BASIS. SHE WAS READY TO BE DISCHARGED WITH HOME HEALTH ON 04/14 Discharge Information Condition at Discharge: Improved Disposition/Orders: D/C to Home w/ HH Dischare Medications Current Medications Potassium Chloride (Klor-Con) 20 meq DAILY PO Last administered on 04/14/17 08:35; Start 04/05/17 at 09:00 Propranolol HCl (Inderal La) 60 mg DAILY PO Last administered on 04/14/17 08: 33; Start 04/05/17 at 09:00 Pantoprazole Sodium (Protonix) 40 mg DAILYAC PO Last administered on 06:25; Start 04/05/17 at 07:30 Non-Formulary Medication 1 ea DAILY PO Last administered on 04/05/17 09:00; Start 04/05/17 at 09:00; Stop 04/07/17 at 11:30; Status DC Docusate Sodium (Colace) 100 mg PRN DAILY PRN PO CONSTIPATION Last administered on 04/10/17 08:08; Start 04/05/17 at 10:45 Polyethylene Glycol (miraLAX) 17 gm PRN DAILY PRN PO CONSTIPATION Last administered on 04/11/17 08:54; Start 04/05/17 at 10:45 Non-Formulary Medication 1 ea DAILY PO Last administered on 04/14/17 08:31; Start 04/06/17 at 09:00 Active Scripts Active Reported Protonix (Pantoprazole Sodium) 40 Mg Tablet.dr 1 Tab PO DAILYAC Meclizine Hcl 12.5 Mg Tablet 1 Tab PO Q6HRS Klor-Con M20 (Potassium Chloride) 20 Meq Tab.er.prt 20 Meq PO DAILY Propranolol Hcl 60 Mg Cap.sa.24h 60 Mg PO DAILY Gleevec (Imatinib Mesylate) 100 Mg Tablet 200 Mg PO DAILY Nexium Capsule (Esomeprazole Magnesium) 40 Mg Capsule. 1 Cap PO DAILY Patient Instructions Patient Instuctions KEEP APPOINTMENT FOR LAB WORK ON MONDAY AND YOU WILL HAVE HOME HEALTH FOR AWHILE. . MEDICATIONS HAVE BEEN RECONCILED. SVETLANA PAYAN DO Apr 14, 2017 10:50
== END 2017-04-14 13:20 | disposition home health service (06) | DRG 948 ==
LOC: LND 03:22
PROVIDERS: ADMIT Internal Medicine; ATTEND Internal Medicine
DX: R53.1 Weakness (principal); D53.9 Nutritional anemia, unspecified; C92.11 Chronic myeloid leukemia, BCR/ABL-positive, in remission; E78.5 Hyperlipidemia, unspecified; K59.00 Constipation, unspecified; J30.2 Other seasonal allergic rhinitis; R42 Dizziness and giddiness; K22.70 Barrett's esophagus without dysplasia; Z80.52 Family history of malignant neoplasm of bladder; Z82.0 Family history of epilepsy and other diseases of the nervous system; Z88.8 Allergy status to other drugs, medicaments and biological substances; Z82.49 Family history of ischemic heart disease and other diseases of the circulatory system; Z90.710 Acquired absence of both cervix and uterus; Z98.41 Cataract extraction status, right eye; Z98.42 Cataract extraction status, left eye; Z90.722 Acquired absence of ovaries, bilateral; Z90.49 Acquired absence of other specified parts of digestive tract
CPT/HCPCS: 97110; 97112; 97116; 97530; 97535

== ENCOUNTER 2017-06-09 17:31 | Emergency (ER) | payer MEDICARE, BC ==
[~2017-06-09] VITALS: Ht 167.6 cm; Wt 79.4 kg
[~2017-06-09 17:31] MED LIST changes: +MECL12.52 PO; +PANT40TA3 PO
--- NOTE | 2017-06-09 18:47 | PHYS DOC ---
Past History Past Medical History: Diabetes, GERD, High Cholesterol, Other Past Surgical History: Hysterectomy Additional Past Surgical Histo: Bilateral cataracts Smoking: Non-smoker Alcohol Use: None Drug Use: None Social History Narrative: Lives with spouse Adult General Chief Complaint Chief Complaint: LOWER EXTREMITY SWELLING HPI HPI Patient is a 81 year old female who presents with bilateral lower leg swelling. She states this is been going on since January 2017. She was on physical therapy and that stopped and then she restarted it 4 weeks ago. Denies any history of clotting disorder. She states she was told she does not have Parkinson's but has had an essential tremor since November. Her sibling did recently from Parkinsons. She states she is "very stiff when she walks". Again this is not a new process. The states however that her skin tears to be a little tighter on her lower legs and they do seem to hurt. No fall or recent injury or trauma. No chest pain, no shortness of air. No confusion. Review of Systems Review of Systems Constitutional: Denies fever or chills Eyes: Denies change in visual acuity, redness, or eye pain HENT: Denies nasal congestion or sore throat Respiratory: Denies cough or shortness of breath Cardiovascular: No chest pain GI: Denies abdominal pain, nausea, vomiting, bloody stools or diarrhea : Denies dysuria or hematuria Musculoskeletal: Denies back pain. diffuse muscle stiffness. bilateral lower leg swelling and pain Integument: Denies rash or skin lesions Neurologic: Denies headache, focal weakness or sensory changes. All other systems were reviewed and found to be within normal limits, except as documented in this note. Family History Family History Parkinson's (brother ) Allergies Allergies Allergies Coded Allergies Type Severity Reaction Last Updated Verified ampicillin Allergy Intermediate 04/02/17 Yes rosuvastatin Allergy Intermediate 04/02/17 Yes Physical Exam Physical Exam Constitutional: Well developed, well nourished, no acute distress, non-toxic appearance. HENT: Normocephalic, atraumatic, bilateral external ears normal, oropharynx moist, no oral exudates, nose normal. Eyes: PERRLA, EOMI, conjunctiva normal, no discharge. Neck: Normal range of motion, no tenderness, supple, no stridor. Cardiovascular:Heart rate regular rhythm, no murmur Lungs & Thorax: Bilateral breath sounds clear to auscultation Abdomen: Bowel sounds normal, soft, no tenderness, no masses, no pulsatile masses. Skin: Warm, dry, no erythema, no rash. Back: No tenderness, no CVA tenderness. Extremities: No tenderness, no cyanosis, no clubbing, ROM intact, bilateral 1+ pitting edema. No compartment syndrome; no erythema or warmth. Neurologic: Alert and oriented X 3, normal motor function, normal sensory function, no focal deficits noted. Current Patient Data Vital Signs Vital Signs Date Time Temp Pulse Resp B/P (MAP) Pulse Ox O2 Delivery O2 Flow Rate FiO2 06/09/17 22:00 61 20 152/70 (97) 98 Room Air 06/09/17 20:49 65 18 150/85 (106) 98 Room Air 06/09/17 20:17 98.2 75 18 98 Room Air Lab Results Laboratory Tests Test 06/09/17 20:44 White Blood Count 6.5 x10^3/uL (4.0-11.0) Red Blood Count 2.99 x10^6/uL (3.50-5.40) Hemoglobin 10.8 g/dL (12.0-15.5) Hematocrit 31.3 % (36.0-47.0) Mean Corpuscular Volume 105 fL (79-100) Mean Corpuscular Hemoglobin 36 pg (25-35) Mean Corpuscular Hemoglobin Concent 35 g/dL (31-37) Red Cell Distribution Width 13.6 % (11.5-14.5) Platelet Count 192 x10^3/uL (140-400) Neutrophils (%) (Auto) 70 % (31-73) Lymphocytes (%) (Auto) 18 % (24-48) Monocytes (%) (Auto) 9 % (0-9) Eosinophils (%) (Auto) 3 % (0-3) Basophils (%) (Auto) 1 % (0-3) Neutrophils # (Auto) 4.6 x10^3uL (1.8-7.7) Lymphocytes # (Auto) 1.2 x10^3/uL (1.0-4.8) Monocytes # (Auto) 0.6 x10^3/uL (0.0-1.1) Eosinophils # (Auto) 0.2 x10^3/uL (0.0-0.7) Basophils # (Auto) 0.0 x10^3/uL (0.0-0.2) D-Dimer (Ruby) 1.53 mg/L (0.00-0.50) Sodium Level 147 mmol/L (136-145) Potassium Level 3.2 mmol/L (3.5-5.1) Chloride Level 111 mmol/L (98-107) Carbon Dioxide Level 28 mmol/L (21-32) Anion Gap 8 (6-14) Blood Urea Nitrogen 16 mg/dL (7-20) Creatinine 1.4 mg/dL (0.6-1.0) Estimated GFR (Cockcroft-Gault) 36.3 BUN/Creatinine Ratio 11 (6-20) Glucose Level 99 mg/dL (70-99) Calcium Level 8.7 mg/dL (8.5-10.1) Total Bilirubin 0.5 mg/dL (0.2-1.0) Aspartate Amino Transf (AST/SGOT) 16 U/L (15-37) Alanine Aminotransferase (ALT/SGPT) 15 U/L (14-59) Alkaline Phosphatase 66 U/L (46-116) Creatine Kinase 149 U/L (26-192) Creatine Kinase MB (Mass) 1.2 ng/mL (0.0-3.6) Creatine Kinase MB Relative Index 0.8 % (0-4) Troponin I Quantitative < 0.017 ng/mL (0-0.055) QW-Kqs-D-Type Natriuretic Peptide 248 pg/mL (0-449) Total Protein 6.2 g/dL (6.4-8.2) Albumin 3.3 g/dL (3.4-5.0) Albumin/Globulin Ratio 1.1 (1.0-1.7) EKG EKG EKG interpreted by myself at [address] changes Radiology/Procedures Radiology/Procedures CXR interpreted by myself at 1915 PM normal cardiac silhouette, normal mediastinum, no pleural effusion, no infiltrate. [address] [address] IMAGING REPORT Signed PATIENT: SUZANNE CR ACCOUNT: [id number] : 1935 LOCATION: ER AGE: 81 SEX: F EXAM STATUS: REG ER ORD. PHYSICIAN: KAUSHIK HURST MD REASON: LE bilat pain and swelling PROCEDURE: VENOUS LOWER EXT BILATERAL Bilateral lower extremity venous Doppler dated 06/09/2017. No comparison available. Clinical indication: Bilateral leg pain and swelling. FINDINGS: Grayscale, color-flow and spectral waveform analysis performed to include the deep venous system of both lower extremity. Normal compressibility, phasicity and augmentation of flow throughout. No filling defects are seen. IMPRESSION: No evidence of lower extremity deep vein thrombosis. Electronically signed by: Isak Sen MD (06/09/2017 8:22 PM) [facility] DICTATED AND SIGNED BY: ISAK SEN MD DATE: 06/09/172020 CC: KAUSHIK HURST MD; MERRY DEL ROSARIO MD ~ Course & Med Decision Making Course & Med Decision Making Evaluated patient. The family is very concerned about DVT. US ordered. lab obtained to r/o renal causes of edema; heptatic causes /or and CHF. She has the appearance of someone with Parkinson's (ie masked face) and overall mild rigidity. US negative and lab unremarkable. Will have patient follow up for further neurologic evaluation of this ongoing process. I have spoken with the patient and/or caregivers. I have explained the patient' s condition, diagnosis and treatment plan based on the information available to me at this time. I have answered the patient's and/or caregiver's questions and addressed any concerns. The patient and/or caregivers have as good an understanding of the patient's diagnosis, condition and treatment plan as can be expected at this point. The patient's condition is stable and appropriate for discharge from the emergency department. The patient will pursue further outpatient evaluation with the primary care physician or other designated or consulting physician as outlined in the discharge instructions. The patient and/or caregivers are agreeable to this plan of care and follow-up instructions have been explained in detail. The patient and/or caregivers have received these instructions in written format and have expressed an understanding of the discharge instructions. The patient and/or caregivers are aware that any significant change in condition or worsening of symptoms should prompt an immediate return to this or the closest emergency department or a call to 911. Maryam Disclaimer Dragon Disclaimer This electronic medical record was generated, in whole or in part, using a voice recognition dictation system. Departure Departure: Impression: Primary Impression: Lower extremity edema Additional Impression: History of muscle stiffness Disposition: HOME, SELF-CARE Condition: STABLE Referrals: MERRY DEL ROSARIO MD (PCP) Patient Instructions: Peripheral Edema Additional Instructions: YOUR ULTRASOUND WAS NEGATIVE HERE. CALL YOUR DOCTOR FOR FURTHER NEUROLOGIC WORK UP. YOUR LAB WAS UNCHANGED WELL. Problem Qualifiers KAUSHIK HURST MD Jun 09, 2017 18:47
--- NOTE | 2017-06-09 20:25 | RAD ---
Bilateral lower extremity venous Doppler dated 06/09/2017. No comparison available. Clinical indication: Bilateral leg pain and swelling. FINDINGS: Grayscale, color-flow and spectral waveform analysis performed to include the deep venous system of both lower extremity. Normal compressibility, phasicity and augmentation of flow throughout. No filling defects are seen. IMPRESSION: No evidence of lower extremity deep vein thrombosis. Electronically signed by: Isak Sen MD (06/09/2017 8:22 PM) [facility]
--- NOTE | 2017-06-09 20:49 | EKG ---
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
[2017-06-09 21:09] LABS: BASO % 1 % (0-3); EOS # 0.2 x10^3/uL (0.0-0.7); EOS % 3 % (0-3); HEMATOCRIT 31.3 % (36.0-47.0); HEMOGLOBIN 10.8 g/dL (12.0-15.5); LYMPH # 1.2 x10^3/uL (1.0-4.8); LYMPH % 18 % (24-48); MEAN CORPUSCULAR HEMOGLOBIN 36 pg (25-35); MEAN CORPUSCULAR HGB CONC 35 g/dL (31-37); MEAN CORPUSCULAR VOLUME 105 fL (79-100); MONO # 0.6 x10^3/uL (0.0-1.1); MONO % 9 % (0-9); NEUT # 4.6 x10^3uL (1.8-7.7); NEUT % 70 % (31-73); PLATELET COUNT 192 x10^3/uL (140-400); RED BLOOD COUNT 2.99 x10^6/uL (3.50-5.40); RED CELL DISTRIBUTION WIDTH 13.6 % (11.5-14.5); WHITE BLOOD COUNT 6.5 x10^3/uL (4.0-11.0)
[2017-06-09 21:31] LABS: ALBUMIN 3.3 g/dL (3.4-5.0); ALBUMIN/GLOBULIN RATIO 1.1 (1.0-1.7); CALCIUM 8.7 mg/dL (8.5-10.1); CREATININE 1.4 mg/dL (0.6-1.0); GFR 36.3; POTASSIUM 3.2 mmol/L (3.5-5.1); TOTAL BILIRUBIN 0.5 mg/dL (0.2-1.0); TOTAL PROTEIN 6.2 g/dL (6.4-8.2)
[2017-06-09 22:00] VITALS: BP 152/70
--- NOTE | 2017-06-10 08:10 | RAD ---
Single view chest 06/09/2017 Clinical indication: Lower extremity swelling. Comparison: 04/02/2017 chest. Findings: Cardiac silhouette is unremarkable. There is a retrocardiac density which is likely a lateral hernia. Tiny calcified granuloma in the peripheral left lung base. No pleural effusion, pneumothorax or focal consolidation. Impression: 1. No acute cardiopulmonary abnormality. 2. Retrocardiac density likely hiatal hernia.
== END 2017-06-09 22:00 | disposition home or self-care (01) ==
LOC: ER 17:31
DX: R60.0 Localized edema (principal); M25.60 Stiffness of unspecified joint, not elsewhere classified; E11.9 Type 2 diabetes mellitus without complications; E78.00 Pure hypercholesterolemia, unspecified; K21.9 Gastro-esophageal reflux disease without esophagitis; Z88.1 Allergy status to other antibiotic agents; Z88.8 Allergy status to other drugs, medicaments and biological substances
CPT/HCPCS: 36415; 71045; 80053; 82553; 83880; 84484; 85025; 85379; 93005; 93970; 99285-25

== ENCOUNTER → 2018-02-14 | Outpatient (CLI) | payer MEDICARE, BC ==
[~2018-02-14] MED LIST changes: +0.9 % SODIUM CHLORIDE 10 ML VIAL ONE; +IOHEXOL 300 MG/ML 50 ML VIAL. ONE; +LIDOCAINE 1% PF 2 ML VIAL. ONE; +LIDOCAINE 2% PF Vial for OR 5 ML VIAL. ONE; +methylPREDNISolone ACETATE 80 MG/ML VIAL. ONE
== END | disposition home or self-care (01) ==
LOC: SURG 12:58
PROVIDERS: ATTEND Anesthesiology Pain Medicine
DX: M47.816 Spondylosis without myelopathy or radiculopathy, lumbar region (principal); G89.4 Chronic pain syndrome; I10 Essential (primary) hypertension; K21.9 Gastro-esophageal reflux disease without esophagitis; M19.90 Unspecified osteoarthritis, unspecified site; G20 Parkinson's disease; Z90.49 Acquired absence of other specified parts of digestive tract; Z90.710 Acquired absence of both cervix and uterus; Z79.899 Other long term (current) drug therapy; Z88.1 Allergy status to other antibiotic agents; Z88.8 Allergy status to other drugs, medicaments and biological substances
CPT/HCPCS: 62323; J1040; Q9967; J2001